=== PATIENT | female | born 1975 | race Asian ===

== ENCOUNTER 2022-01-22 19:45 | Emergency (ER) | payer OTHER ==
[~2022-01-22] VITALS: Ht 152.4 cm; Wt 63.5 kg
[2022-01-22 20:15] VITALS: BP 146/80
--- NOTE | 2022-01-22 20:22 | NUR ---
TO LOBBY FOLLOWING TRIAGE
--- NOTE | 2022-01-22 22:53 | NUR ---
PT TAKEN TO BED 11
--- NOTE | 2022-01-22 22:54 | NUR ---
Dr. Ayala examining patient.
--- NOTE | 2022-01-22 23:13 | NUR ---
X-Ray at bedside.
--- NOTE | 2022-01-22 23:51 | NUR ---
47 YO F BIB SELF WITH C/C OF RT HAND 06/08 NUMBNESS X1-2 WKS. PT'S HAD IS SWOLLEN. PT STATES SHE BELIEVES IT IS WORK RELATED BECAUSE OF THE AMOUNT OF PRESSURE SHE MUST APPLY TO HAND. LIMITED ROM WITH DISCOMFORT. HAND STRENGTH WEAK. DENIES HX, RX AND ALLERGIES.
--- NOTE | 2022-01-23 00:37 | NUR ---
PT BACK IN BED. WARM BLANKETS PROVIDED
[2022-01-23] MEDS ORDERED: NAPR-54 PO (00:40)
[2022-01-23 01:19] VITALS: BP 146/80
== END 2022-01-23 01:19 | disposition home or self-care (01) ==
LOC: MED 19:45
DX: R20.2 Paresthesia of skin (principal); R20.0 Anesthesia of skin; Z79.899 Other long term (current) drug therapy
CPT/HCPCS: 29125; 73130; 99283; Q0092